=== PATIENT | female | born 1990 | race African-American/Black ===

== ENCOUNTER 2016-06-05 13:05 | Emergency (ER) | payer BC ==
[~2016-06-05] VITALS: Ht 154.9 cm; Wt 114.3 kg
[2016-06-05 13:18] VITALS: BP 127/74; PULSE 70; RESP 18; TEMP 97.7; O2SAT 98
[2016-06-05] MEDS ORDERED: IBUPROFEN 800 MG TABLET PO ONE (13:30)
[2016-06-05 14:38] VITALS: BP 123/71; PULSE 70; RESP 17; TEMP 97.7; O2SAT 98
== END 2016-06-05 14:38 | disposition home or self-care (01) ==
LOC: SED 13:05
DX: S63.502A Unspecified sprain of left wrist, initial encounter (principal); S20.212A Contusion of left front wall of thorax, initial encounter; V89.2XXA Person injured in unspecified motor-vehicle accident, traffic, initial encounter; W22.10XA Striking against or struck by unspecified automobile airbag, initial encounter; Y93.89 Activity, other specified; Y99.8 Other external cause status; Y92.89 Other specified places as the place of occurrence of the external cause
CPT/HCPCS: 71020-TC; 73090; 81025; 93005; 99284